=== PATIENT | male | born 2000 | race Caucasian/White ===

== ENCOUNTER → 2020-11-19 | Outpatient (CLI) | payer OTHER ==
--- NOTE | 2020-11-19 22:36 | CONS ---
CONSULTATION DATE OF SERVICE: 11/19/2020 20-year-old gentleman has [facility] for possible obstructive sleep apnea-hypopnea syndrome. HISTORY OF PRESENT ILLNESS/SLEEP WAKE EVALUATION: SLEEP SCHEDULE: Patient's usual sleep schedule on weekdays from 9 p.m. to 5:30 a.m. On weekends, from 11 p.m. to 10/10:30 a.m. FALLING ASLEEP: Sometimes he has problems with falling asleep, has TV set in bedroom. DURING SLEEP: He sleeps on the side and back position. According to his mother, his snores loudly and he wakes up from sleep 3 times. No nocturia. Positive history of awakenings with dry mouth and gasping for air. Positive history of cardiac palpitation. DURING THE DAY/SLEEP WAKE EVALUATION: Sleepiness during the day. [place] Sleepiness Scale is in the high range of 15. The patient may take one nap mid afternoon. During the day the patient has difficulties paying attention. Worry about his sleep. PAST MEDICAL HISTORY: Positive for pneumoniae in 2007 with pleurisy, history of cardiac palpitations. Acid reflux. MEDICATIONS: Medications include vitamin C and D. SOCIAL HISTORY: Negative for smoking or using alcohol. FAMILY HISTORY: Positive for asthma, sinus problems, diabetes, cancer. REVIEW OF SYSTEMS: Awakenings from sleep, sleepiness during the day. PHYSICAL EXAMINATION: GENERAL: gentleman without distress. BP 140/72, HR 82, RR 16, height 6 feet 3-1/2 inches, weight 281.4 pounds, temperature 97.7, oxygen saturation on room air 97%. Oropharynx: Extremely low position of soft palate. Mallampati 4. NECK is wide, 19.5 inches in circumference. Neck: Supple, no JVD. Thyroid is not palpable. LUNGS: Clear to percussion and to auscultation. Good air exchange. No wheezing or rhonchi. HEART: S1, S2 regular. No murmurs, gallops, or rubs. ABDOMEN: Soft and nontender. Bowel sounds are present. No organomegaly appreciated. EXTREMITIES: No clubbing or cyanosis. 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 Cranial nerves 2 to 7 intact. There is no fasciculation or atrophy. noted. No focal deficits observed. IMPRESSION: 1. Loud snoring, witnessed episodes of stopped breathing during sleep, extremely low position of soft palate, wide neck 19.5 inches in circumference, sleepiness, [place] Sleepiness Scale of 15. Obstructive sleep apnea-hypopnea syndrome. 2. Obesity BMI 34.6. 3. Status post pneumonia in 2007 with pleurisy. 4. History of acid reflux. 5. Restless leg symptoms. PLAN: 1. Home sleep apnea test to check the patient breathing during sleep. 2. CPAP/BiPAP titration if sleep study confirms obstructive sleep apnea-hypopnea syndrome. 3. Preferable position during sleep on the side. 4. No driving if patient feels any sleepiness. 5. I will see patient for follow up visit to explain results of testing and following plan. Miguel Hollins MD, PhD, FAASM Diplomat of [employer] [employer] [place] [employer] Manager [facility] Ophelia [id number] / CHANELN: [id number] /
== END ==
LOC: SLEEP 16:28
PROVIDERS: ATTEND Internal Medicine
DX: G47.33 Obstructive sleep apnea (adult) (pediatric) (principal); E66.9 Obesity, unspecified; G25.81 Restless legs syndrome; Z68.34 Body mass index [BMI] 34.0-34.9, adult; Z87.19 Personal history of other diseases of the digestive system; Z87.01 Personal history of pneumonia (recurrent)
CPT/HCPCS: 99202